=== PATIENT | male | born 1950 | race American Indian/Alaskan Native ===

== ENCOUNTER 2020-01-08 06:25 | Day surgery (SDC) | payer MEDICARE ==
--- NOTE | 2020-01-07 09:28 | Short Stay Summary ---
Short Stay Documentation Date of service: 01/08/20 - History H&P: obtained from office - Allergies and Medications Current Medications: Allergies No Known Allergies Allergy (Verified 01/01/20 12:44) Home Medications Medication Instructions Recorded Confirmed Last Taken Type Bicalutamide [Casodex] 50 mg PO DAILY 01/01/20 01/01/20 Unknown History Calcium Acetate 667 mg PO TID 01/01/20 01/01/20 Unknown History amLODIPine [Norvasc] 5 mg PO DAILY 01/01/20 01/01/20 Unknown History - Physical exam General appearance: no acute distress HEENT: Atraumatic Lungs: Normal air movement Male Genitourinary: left inguinal hernia Neurological: Normal speech - Brief post op/procedure progress note Date of procedure: 01/08/20 (dictation:[id number]) Pre-op diagnosis: LIH Post-op diagnosis: same Procedure: robotic assisted LIH repair IVF 500cc EBL min Anesthesia: GETA Findings: large direct LIH Surgeon: TWIN BELTRE Sweat Band Sewer: KAN ERICKSON Estimated blood loss: minimal Pathology: none Condition: stable - Hospital course Hospital course: uneventful - Disposition Condition at discharge: Stable Disposition: DC-01 TO HOME OR SELFCARE Short Stay Discharge Plan Activity: advance as tolerated Diet: regular Wound: open to air, keep clean and dry Special Instructions: no heavy lifting Additional Instructions: Post Operative Instructions Activity: no heavy lifting for next 1 week. May shower tomorrow. Pat dry the wound or wounds. Keep incision sites clean and dry After surgery, start with a light diet. Consider starting with liquids. If you do well, you can advance to a regular diet as you feel comfortable. Apply an ice pack to the wound or wounds for 10-20 minutes at a time. Do this at least 4-5 times a day. You can do it more if he would like. Pain Medication Schedule for the first 2 days after surgery: Gabapentin 300mg twice a day Tylenol 500mg four times a day (every 6 hours) Celebrex 200mg twice a day After the first 2 days, then take alternating doses of ibuprofen and Tylenol as needed for pain. Take 600 mg of ibuprofen every 6 hours as needed. Take 500 mg of Tylenol every 6 hours as needed. You should alternate these 2 medicines. Make sure you take the ibuprofen with food. It is very important that you use the prescription narcotic pain medicine (hydrocodone) only for very severe pain. Do not take the narcotic medicine before you try using all the medications listed above. We will call you in a couple of days to see how youre doing. If you have any questions or concerns, always feel free to call the clinic ([phone]) at any time. Follow up with: ANGELLA BOLAÑOS MD [Primary Care Provider] - 7 Days TWIN BELTRE MD [Staff Physician] - 7 Days Forms: Outpatient Surgery DC Inst. Prescriptions: Celecoxib [celeBREX] 200 mg PO BID #4 capsule Gabapentin 30 mg PO BID #4 capsule HYDROcodone/APAP 5-325 [[place] 5/325] 1 each PO Q6HR PRN #10 tablet PRN Reason: Pain , Severe (7-10)
[~2020-01-08 06:25] MED LIST: ACETAMINOPHEN 500 MG TAB PO ONE; CELECOXIB 200 MG CAP PO NR; GABAPENTIN 300 MG CAP PO SCH
[2020-01-08] MEDS ORDERED: SODIUM CHLORIDE 0.9% 1000 ML 1,000 ML IV SCH (07:10)
[2020-01-08] MEDS ORDERED: LACTATED RINGERS 1,000 ML ONE (07:10)
[2020-01-08 07:15] LABS: Hematocrit 25.5 % (35.5-45.6); Mean Corpuscular HGB Conc 32 % (32-34); Mean Corpuscular Volume 78 fl (84-94); Platelet Count 223 K/mm3 (140-440); Red Blood Count 3.27 M/mm3 (3.65-5.03); Red Cell Distribution Width 14.8 % (13.2-15.2)
--- NOTE | 2020-01-08 07:16 | Anesthesia Day of Surgery ---
Anesthesia Day of Surgery - Day of Surgery Patient Examined: Yes Patient H&P Reviewed: Yes Patient is NPO: Yes
--- NOTE | 2020-01-08 07:18 | Anesthesia Consultation ---
Anesthesia Consult and Med Hx Date of service: 01/08/20 - Airway Anesthetic Teeth Evaluation: Chipped ROM Head & Neck: Adequate Mental/Hyoid Distance: Adequate Mallampati Class: Class II Intubation Access Assessment: Good - Pre-Operative Health Status ASA Pre-Surgery Classification: ASA3 Proposed Anesthetic Plan: General - Pulmonary Hx Smoking: No (+2FS) Hx Sleep Apnea: No (MARCIO PRE SCREEN HIGH RISK) - Cardiovascular System Hx Hypertension: Yes (X 15 YRS) - Endocrine Hx Renal Disease: Yes (Last HD yesterday) Hx End Stage Renal Disease: Yes (DIALYSIS X 6 MONTHS) - Other Systems Hx Cancer: Yes - Additional Comments Anesthesia Medical History Comments: COVID NEGATIVE
[2020-01-08 07:31] LABS: Calcium 9.5 mg/dL (8.4-10.2)
[2020-01-08] MEDS ORDERED: BUPIVACAINE-EPINEPHRINE/PF 0.5%-1:200,000 (30 ML) VIAL INFILTRATI ONE ×2 (07:42→09:04)
[2020-01-08] MEDS ORDERED: LIDOCAINE (1%) 10 MG/1 ML VIAL 20 ML MDV ONE (07:42)
[2020-01-08] MEDS ORDERED: ePHEDrine SULFATE 50 MG/1 ML INJ ONE (07:45)
[2020-01-08] MEDS ORDERED: SUCCINYLCHOLINE CHLORIDE 200 MG/10 ML INJ MDV ONE (07:49)
[2020-01-08] MEDS ORDERED: fentaNYL 100 MCG/2 ML INJ ONE (07:49)
[2020-01-08] MEDS ORDERED: NEOSTIGMINE 10MG/10 ML INJ MDV ONE (07:49)
[2020-01-08] MEDS ORDERED: LIDOCAINE MPF (2%) 20 MG/1 ML VIAL 5 ML ONE (07:49)
[2020-01-08] MEDS ORDERED: GLYCOPYRROLATE 0.4 MG/2 ML INJ ONE (07:49)
[2020-01-08] MEDS ORDERED: dexAMETHasone 20 MG/5 ML VIAL ONE (07:49)
[2020-01-08] MEDS ORDERED: ROCURONIUM 50 MG/5 ML INJ IV ONE (07:49)
[2020-01-08] MEDS ORDERED: PHENYLEPHRINE/NS 1,000 MCG/10 ML SYRINGE (OR USE) IV ONE (07:49)
[2020-01-08] MEDS ORDERED: ONDANSETRON 4 MG/2 ML INJ ONE (07:49)
[2020-01-08] MEDS ORDERED: propofoL 200 MG/20 ML VIAL IV ONE (07:50)
[2020-01-08] MEDS ORDERED: ceFAZolin/Water 2 GM/20 ML 2 GM/20 ML SYRINGE IV SCH (08:00)
[2020-01-08] MEDS ORDERED: LIDOCAINE (1%) 10 MG/1 ML VIAL 20 ML MDV INFILTRATI ONE (09:04)
[2020-01-08] MEDS ORDERED: WATER FOR IRRIG STERILE 1,500 ML BOTTLE IR ONE (09:06)
[2020-01-08] MEDS ORDERED: HYDROcodone/ACETAMINOPHEN 5-325 MG TAB PO PRN (09:41)
[2020-01-08] MEDS ORDERED: CISATRACURIUM 10 MG/5 ML INJ IV ONE (10:00)
[2020-01-08] MEDS ORDERED: HYDROmorphone 1 MG/1 ML INJ ONE (10:06)
[2020-01-08] MEDS ORDERED: ONDANSETRON 4 MG/2 ML INJ IV PRN (10:07)
[2020-01-08] MEDS ORDERED: HYDROmorphone 1 MG/1 ML INJ IV PRN (10:07)
[2020-01-08 10:46] VITALS: BP 114/68
--- NOTE | 2020-01-08 14:58 | Operative Report ---
PREOPERATIVE DIAGNOSIS: Left inguinal hernia. POSTOPERATIVE DIAGNOSIS: Large direct left inguinal hernia. No evidence of hernia on the right. PROCEDURE: Robotic-assisted laparoscopic left inguinal hernia repair. ATTENDING PHYSICIAN: Bailey Oswald MD SERVER SYSTEMS ADMINISTRATOR: Dr. Cramer. ANESTHESIA: General. ESTIMATED BLOOD LOSS: Minimal. FLUIDS: 500 mL. FINDINGS: Large direct left inguinal hernia with lipoma herniating into the sac. No evidence of hernia on the right. IMPLANTS: Bard left 3DMax large mesh. DRAINS: None. COMPLICATIONS: None. DISPOSITION: Stable, transport to Recovery. INDICATIONS: This is a 69-year-old male who presented to the office for evaluation of PD catheter placement. On exam, the patient was found to have a large left inguinal hernia and a possible one on the right. The patient is assessed to be need for hernia repair. Procedure, risks, benefits were explained to the patient. Risks include but were not limited to infection, bleeding, pain, injury to surrounding structures, possible recurrence, possible need for further procedures in the future. The patient understood and consented. OPERATIVE NOTE: The patient was brought to the operating room and placed on the table in supine position. After adequate general anesthesia was established, the patient was prepped and draped in the usual sterile fashion. SCDs were in place. Antibiotics had been given. Time-out was called. I began by placing a Veress needle in the left upper quadrant. I was able to insufflate on the first attempt. This was replaced with a 5 mm port that was inserted using the Optiview technique. I entered the peritoneal cavity safely. There was no injury to the underlying structures. Under direct vision, a 12 mm port was placed in the supraumbilical position and then laterally two 8 mm ports were placed. We could easily see a very large left inguinal hernia. On the right, we did not appreciate any hernia. The bed was flexed. The patient was placed in Trendelenburg position. Robot was docked. I then proceeded to the console. I began by creating a peritoneal flap approximately 6 cm above the hernia. I dissected down to the pubic symphysis and tubercle. We extended this laterally. We had a nice wide dissection, I was clearly able to dissect the hernia sac out intact. We removed lipoma as well. We then placed a Bard 3DMax mesh in that position. It was large. Prior to that, I cleaned the area with a Ray-Delia to make sure there was no active bleeding. Everything looked very good. We clearly saw the cord structures. There were no other issues or concerns. We had a nice dissection of the peritoneum pretty far back. Mesh was laid in place. It laid very nicely. It was secured to the pubic tubercle with a 2-0 Vicryl stitch. Another 2 stitches were placed on the anterior abdominal wall, taking care to avoid the path of the epigastric vessels. We had also placed an Angiocath under direct vision to be used at the end to decompress the area. Once the mesh was secured, I then closed the peritoneum with a running 3-0 V-Loc suture. Everything looked very good. We converted back to laparoscopic approach. I removed the 2 needles as well as the Ray-Delia. We closed the 12 mm port with the Nacho-Gita fascial closure device using a 2-0 PDS suture. We then decompressed the abdomen. I held pressure down in the left inguinal region to get the air out, as we were removing air, it did decompress very nicely and stayed down. We removed all the ports. Additional local was injected, 4-0 Monocryl suture was used to close the skin with subcuticular stitches. Skin was cleaned and dried. Dermabond was placed. The patient tolerated the procedure well. There were no complications. All counts were correct at the end of the case. I spoke with the at the end of the case by phone. She was very appreciative. JOB# [id number] ANDERSON/YOHANNES
--- NOTE | 2020-01-08 15:57 | Post Anesthesia Evaluation ---
- Post Anesthesia Evaluation Patient Participated: Yes Airway Patent: Yes Stable Respiratory Function: Yes Nausea/Vomiting: No Temp > 96.8F: Yes Pain Manageable: Yes Adequeate Hydration: Yes Anesthesia Complications: No Block Receding Appropriately: Not Applicable Patient on Ventilator: No
== END 2020-01-08 11:25 | disposition home or self-care (01) ==
LOC: OR 06:25
PROVIDERS: ATTEND Surgery
DX: K40.90 Unilateral inguinal hernia, without obstruction or gangrene, not specified as recurrent (principal); Z11.59 Encounter for screening for other viral diseases; G43.909 Migraine, unspecified, not intractable, without status migrainosus; E78.00 Pure hypercholesterolemia, unspecified; I12.0 Hypertensive chronic kidney disease with stage 5 chronic kidney disease or end stage renal disease; N18.6 End stage renal disease; Z99.2 Dependence on renal dialysis; Z98.890 Other specified postprocedural states; Z79.899 Other long term (current) drug therapy; Z85.46 Personal history of malignant neoplasm of prostate
CPT/HCPCS: 36415; 49650; 80048; 85027; C1781; J0330; J1100; J1170; J2370; J2405; J2704; J2710; J3010; J7030; J7120; U0003

== ENCOUNTER 2020-04-22 10:33 | Day surgery (SDC) | payer MEDICARE ==
[2020-04-22] MEDS ORDERED: ceFAZolin/STERILE WATER 2 GM/20 ML SYRINGE IV NR (11:00)
[2020-04-22] MEDS ORDERED: SODIUM CHLORIDE 0.9% 1000 ML 1,000 ML ONE (11:14)
[2020-04-22 11:28] LABS: Calcium 9.8 mg/dL (8.4-10.2)
[2020-04-22] MEDS ORDERED: ONDANSETRON 4 MG/2 ML INJ IV PRN (11:30)
[2020-04-22] MEDS ORDERED: HYDROmorphone 1 MG/1 ML INJ IV PRN ×2 (11:30)
[2020-04-22] MEDS ORDERED: SODIUM CHLORIDE 0.9% 1000 ML 1,000 ML IV SCH (11:30)
--- NOTE | 2020-04-22 11:31 | Anesthesia Day of Surgery ---
Anesthesia Day of Surgery - Day of Surgery Patient Examined: Yes Patient H&P Reviewed: Yes Patient is NPO: Yes
--- NOTE | 2020-04-22 11:32 | Anesthesia Consultation ---
Anesthesia Consult and Med Hx Date of service: 04/22/20 - Airway Anesthetic Teeth Evaluation: Poor, Chipped ROM Head & Neck: Adequate Mental/Hyoid Distance: Adequate Mallampati Class: Class II Intubation Access Assessment: Good - Pre-Operative Health Status ASA Pre-Surgery Classification: ASA3 Proposed Anesthetic Plan: General - Pulmonary Hx Smoking: No Hx Respiratory Symptoms: No (COVID-negative) SOB: Yes (SOB WITH ACTIVITY) Hx Pneumonia: Yes (02/2020,[place] WITH ABX- RESOLVED) Hx Sleep Apnea: No (MARCIO PRE SCREEN HIGH RISK) - Cardiovascular System Hx Hypertension: Yes (X 15 YRS- OFF MEDS NOW DUE TO RECENT LOW BP) - Central Nervous System Hx Neuromuscular Disorder: Yes (Peripheral neuropathy) Hx Psychiatric Problems: No - Endocrine Hx Renal Disease: Yes Hx End Stage Renal Disease: Yes (Last HD yesterday) - Hematic Hx Anemia: Yes - Other Systems Hx Cancer: Yes (h/o reccurent Prostate CA (2013, 2018))
[2020-04-22] MEDS ORDERED: LIDOCAINE (1%) 10 MG/1 ML VIAL 20 ML MDV ONE ×2 (12:46→13:47)
[2020-04-22] MEDS ORDERED: BUPIVACAINE-EPINEPHRINE/PF 0.5%-1:200,000 (30 ML) VIAL INFILTRATI ONE ×2 (13:00→14:35)
[2020-04-22] MEDS ORDERED: LIDOCAINE MPF (2%) 20 MG/1 ML VIAL 5 ML ONE (13:41)
[2020-04-22] MEDS ORDERED: ROCURONIUM 50 MG/5 ML INJ IV ONE (13:41)
[2020-04-22] MEDS ORDERED: propofoL 200 MG/20 ML VIAL IV ONE (13:41)
[2020-04-22] MEDS ORDERED: HYDROmorphone 1 MG/1 ML INJ ONE ×2 (13:42→14:05)
[2020-04-22] MEDS ORDERED: BUPIVACAINE/PF (0.25%) 2.5 MG/ML 30 ML VIAL INFILTRATI ONE (13:46)
[2020-04-22] MEDS ORDERED: HEPARIN 10,000 UNITS/10 ML VIAL ONE (13:47)
[2020-04-22] MEDS ORDERED: NEOSTIGMINE 10MG/10 ML INJ MDV ONE (14:05)
[2020-04-22] MEDS ORDERED: dexAMETHasone 20 MG/5 ML VIAL ONE (14:05)
[2020-04-22] MEDS ORDERED: ONDANSETRON 4 MG/2 ML INJ ONE (14:05)
[2020-04-22] MEDS ORDERED: GLYCOPYRROLATE 0.4 MG/2 ML INJ ONE (14:05)
[2020-04-22] MEDS ORDERED: PHENYLEPHRINE/NS 1,000 MCG/10 ML SYRINGE (OR USE) IV ONE (14:05)
[2020-04-22] MEDS ORDERED: SODIUM CHLORIDE 0.9% IRR 1,500 ML BOTTLE IR ONE (14:35)
--- NOTE | 2020-04-22 15:15 | Short Stay Summary ---
Short Stay Documentation Date of service: 04/22/20 - History Principal diagnosis: malfunctioning PD catheter H&P: obtained from office - Allergies and Medications Current Medications: Allergies No Known Allergies Allergy (Verified 01/21/20 09:26) Home Medications Medication Instructions Recorded Confirmed Last Taken Type Bicalutamide [Casodex] 50 mg PO DAILY 01/01/20 04/22/20 04/21/20 09:00 History B Complex 11/Folic/C/Biot/Zinc 1 tab PO DAILY 04/16/20 04/22/20 04/21/20 09:00 History [Dialyvite with Zinc Tablet] Calcium Citrate/Vitamin D3 1 tab PO DAILY 04/16/20 04/22/20 04/21/20 09:00 History [Citracal + D Maximum Caplet] [place]-3/Dha/Epa/Fish Oil [[place] 3 1 cap PO DAILY 04/16/20 04/22/20 04/21/20 09:00 History 500 Softgel] Active Medications Cefazolin Sodium (Ancef/Sterile Water 2 Gm/20 Ml) 2 gm IV PREOP NR Stop: 04/22/20 23:59 Hydromorphone HCl (Dilaudid) 0.25 mg IV Q10MIN PRN PRN Reason: Pain, Moderate (4-6) Stop: 04/22/20 23:59 Hydromorphone HCl (Dilaudid) 0.5 mg IV Q10MIN PRN PRN Reason: Pain , Severe (7-10) Stop: 04/22/20 23:59 Sodium Chloride (Nacl 0.9% 1000 Ml) 1,000 mls @ 42 mls/hr IV DIRECT LORENZO Last Admin: 04/22/20 11:39 Dose: 42 mls/hr Documented by: Ondansetron HCl (Zofran) 4 mg IV ONCE PRN PRN Reason: Nausea And Vomiting - Brief post op/procedure progress note Date of procedure: 04/22/20 Pre-op diagnosis: malfunctioning PD catheter Post-op diagnosis: same Procedure: diagnostic laparoscopy, removal of PD catheter Anesthesia: GETA, local Findings: Very dense adhesions from small bowel to pelvis, anterior abdominal wall in the region of the peritoneal dialysis catheter. Catheter completely obscures. First 2 cm of catheter entering into abdominal cavity completely encased in dense scar tissue. Surgeon: KAN ERICKSON Estimated blood loss: minimal Pathology: list (PD catheter (2 pieces)) Specimen disposition: to lab Condition: stable - Hospital course Hospital course: Pt observed in PACU and discharged to home in stable condition when criteria met - Disposition Condition at discharge: Good Disposition: DC-01 TO HOME OR SELFCARE Short Stay Discharge Plan Activity: other (no heavy lifting for 2 weeks) Diet: renal Wound: other (remove gauze dressing in 2 days. May shower after that. Cleanse incisions with soap and water, pat dry, do not scrub.) Follow up with: BRIAN JESUS MD [Primary Care Provider] - 7 Days KAN ERICKSON DO [Staff Physician] - 14 Days NAY FERGUSON MD [Staff Physician] - 7 Days Prescriptions: HYDROcodone/APAP 5-325 [[place] 5/325] 1 each PO Q4HR PRN #15 tablet PRN Reason: Pain , Severe (7-10)
[2020-04-22 16:36] VITALS: BP 116/67
--- NOTE | 2020-04-22 17:05 | Operative Report ---
Operative Report Operative Report: Date of procedure: 04/22/20 Pre-op diagnosis: malfunctioning PD catheter Post-op diagnosis: same Procedure: diagnostic laparoscopy, removal of PD catheter Anesthesia: GETA, local Findings: Very dense adhesions from small bowel to pelvis, anterior abdominal wall in the region of the peritoneal dialysis catheter. Catheter completely obscures. First 2 cm of catheter entering into abdominal cavity completely encased in dense scar tissue. Surgeon: KAN ERICKSON Estimated blood loss: minimal Pathology: list (PD catheter (2 pieces)) Specimen disposition: to lab Condition: stable - Hospital course Hospital course: Pt observed in PACU and discharged to home in stable condition when criteria met HPI and indication: Patient is a 70-year-old male with a past medical history of end-stage renal disease currently on hemodialysis via PermCath. Patient had a laparoscopic peritoneal dialysis catheter placement back in January [address] Oswald. Although the catheter worked very well initially, the patient started having issues with filling of the abdomen during his PD training sessions. In March 2020 underwent a diagnostic laparoscopy by Dr. Oswald during which she was found to have very dense scar tissue around the catheter. A lysis of adhesions was performed and the catheter was freed and placed back into the pelvis. The peritoneal dialysis catheter then functioned well for 2 weeks and the patient started to have the same issues with discomfort upon filling the abdomen and only able to fill approximately 100 cc. Despite conservative management with antifibrin agents, these issues did not resolve. I had a long discussion with the patient regarding further recommendations. We discussed a repeat diagnostic laparoscopy to examine whether he had reformed scar tissue and based on that I would make the intraoperative decision to either remove the catheter or leave it in place. He understands and all risk, benefits, alternatives to surgery were discussed. All questions answered and consent obtained. Procedure in detail: Patient identified the preoperative area, take back to operating room placed operative table in supine position. After anesthesia was induced the abdomen along with the PD catheter were prepped and draped in usual sterile fashion a timeout was performed. Local anesthetic was infiltrated to skin incision sites. A 5 mm left upper quadrant incision was made through the old scar at Restrepo's point through which a Veress needle was inserted. The Veress needle position was confirmed using saline drop test and the abdomen insufflated to 15 mmHg. Once the abdomen is insufflated the Veress needle was removed and a 5 mm Optiview trocar placed through this incision. The abdomen is inspected and there was no underlying injury to any abdominal structures. There appeared to be dense adhesions from the small bowel and omentum to the anterior abdominal wall and in the pelvis completely obscuring the peritoneal dialysis catheter. An additional incision was made in the left lateral abdomen at a previous laparoscopic scar through which a 5 mm trocar was placed under direct visualization. I further examined the adhesions and attempted to break these up with blunt dissection which was unsuccessful. The small bowel was very densely adhered to the anterior abdominal wall in the pelvis without an obvious safe plane. A 2 cm portion of the peritoneal dialysis catheter was identified as it entered the abdomen near the umbilicus, however even this was completely encased in dense scar tissue. At this point, it was decided that the patient was having a foreign body reaction to the peritoneal dialysis catheter for the second time in a period of less than a month and that the peritoneal dialysis catheter could not be salvaged. It was therefore decided to remove the catheter. This was discussed in detail with the patient prior to surgery. The abdomen was desufflated. Local anesthetic was infiltrated into the skin just to the right of the umbilicus at the old incision site where the preperitoneal cuff was buried. An incision was made in the skin using 11 blade and dissection carried down through skin and subcutaneous tissue using Bovie electrocautery. The catheter was palpable and dissected free from the capsule using electrocautery. The catheter was grasped with a hemostat and brought out of the incision. The tunnel was dissected using a hemostat until the subcutaneous cuff was identified. This was dissected free from the surrounding tissue using Bovie electrocautery circumferentially. I then turned my attention to freeing the preperitoneal cuff. Dissection was carried down through the capsule along the length of the catheter towards the fascia. The preperitoneal cuff was identified deep to the muscle and tented upwards. This was circumferentially dissected free from the surrounding capsule using electrocautery. Great care was taken to avoid injury to the surrounding structures. Once this was freed the catheter was easily removed from the intra-abdominal cavity. The catheter was cut and both pieces passed off the table as a specimen for identification only. Of note, the intra- abdominal portion of the catheter did have some fat globules intermittently throughout the tubing but was able to be flushed easily with saline. The wound was then irrigated and checked for hemostasis. There was no bleeding seen. The fascia was approximated over the muscle using an interrupted 0 Vicryl stitch. I then went back to assess the abdomen laparoscopically. The abdomen was insufflated and there was no underlying injury to any of the abdominal structures. There is no bleeding seen. The abdomen was then desufflated and the trocars removed. Local anesthetic was infiltrated to all skin incision si [place]. The right sided incision was closed in a layered fashion. The deep dermal layer was closed with interrupted 3-0 Vicryl stitches. All skin incisions were approximated 4 Monocryl subcuticular stitch and skin glue. The catheter exit site in the right lateral abdomen was covered with a 4 x 4 gauze and a Tegaderm. The end of the case all sponge, instrument, sharp counts were correct x2. The patient was awoken from anesthesia, extubated, taken to PACU in stable condition. Patient's was called and updated. I left a message for Dr. Harrington the patient's reinforcing steel machine operator updating him of the findings.
== END 2020-04-22 16:53 | disposition home or self-care (01) ==
LOC: OR 10:33
PROVIDERS: ATTEND Surgery
DX: T85.611A Breakdown (mechanical) of intraperitoneal dialysis catheter, initial encounter (principal); I12.0 Hypertensive chronic kidney disease with stage 5 chronic kidney disease or end stage renal disease; N18.6 End stage renal disease; G62.9 Polyneuropathy, unspecified; G43.909 Migraine, unspecified, not intractable, without status migrainosus; E78.00 Pure hypercholesterolemia, unspecified; Z98.890 Other specified postprocedural states; Z85.46 Personal history of malignant neoplasm of prostate; Z79.899 Other long term (current) drug therapy; Z87.01 Personal history of pneumonia (recurrent); Y82.8 Other medical devices associated with adverse incidents; Y92.89 Other specified places as the place of occurrence of the external cause
CPT/HCPCS: 36415; 49320; 49422; 80048; 88300; J0690; J1100; J1170; J2370; J2405; J2704; J2710; J7030; U0003; J1644

== ENCOUNTER 2020-08-22 10:23 | Day surgery (SDC) | payer MEDICARE ==
[~2020-08-22 10:23] MED LIST changes: -ACETAMINOPHEN 500 MG TAB PO ONE; -CELECOXIB 200 MG CAP PO NR; -GABAPENTIN 300 MG CAP PO SCH; +MIDAZOLAM 2 MG/2 ML INJ IV NR; +SODIUM CHLORIDE 0.9% 1000 ML 1,000 ML IV SCH; +ceFAZolin/Water 2 GM/20 ML 2 GM/20 ML SYRINGE IV NR; +fentaNYL 100 MCG/2 ML INJ IV PRN
[2020-08-22 11:52] LABS: Calcium 9.5 mg/dL (8.4-10.2)
[2020-08-22] MEDS ORDERED: HYDROmorphone 1 MG/1 ML INJ ONE (11:55)
[2020-08-22] MEDS ORDERED: LIDOCAINE MPF (2%) 20 MG/1 ML VIAL 5 ML ONE (11:55)
[2020-08-22] MEDS ORDERED: propofoL 200 MG/20 ML VIAL IV ONE ×2 (11:55→13:25)
[2020-08-22 11:56] LABS: Hemoglobin 12.3 gm/dl (11.8-15.2); Red Blood Count 5.22 M/mm3 (3.65-5.03)
[2020-08-22 11:57] LABS: Hematocrit 41.7 % (35.5-45.6); Mean Corpuscular HGB Conc 30 % (32-34); Mean Corpuscular Volume 80 fl (84-94); Platelet Count 185 K/mm3 (140-440); Red Cell Distribution Width 18.3 % (13.2-15.2)
[2020-08-22] MEDS ORDERED: MIDAZOLAM 2 MG/2 ML INJ ONE (12:12)
[2020-08-22] MEDS ORDERED: PROTAMINE SULFATE 50 MG/5 ML INJ ONE (12:15)
[2020-08-22] MEDS ORDERED: BUPIVACAINE/PF (0.5%) 5 MG/1 ML 10 ML VIAL INFILTRATI ONE ×3 (12:15→13:42)
[2020-08-22] MEDS ORDERED: LIDOCAINE (1%) 10 MG/1 ML VIAL 20 ML MDV ONE (12:15)
[2020-08-22] MEDS ORDERED: SODIUM CHLORIDE 0.45% 500 ML IV ONE (12:16)
[2020-08-22] MEDS ORDERED: HEPARIN 10,000 UNITS/10 ML VIAL ONE (12:16)
[2020-08-22] MEDS ORDERED: SODIUM CHLORIDE P/F VIAL 10 ML 10 ML ONE (12:16)
[2020-08-22] MEDS ORDERED: PAPAVERINE 60 MG/2 ML INJ SDV ONE (12:16)
[2020-08-22] MEDS ORDERED: SODIUM BICARBONATE 2 MEQ/2 ML SYRINGE ONE (12:17)
[2020-08-22] MEDS ORDERED: NITROGLYCERIN SYRINGE 0 ML ONE (12:17)
[2020-08-22] MEDS ORDERED: SODIUM CHLORIDE 0.9% 250ML 250 ML ONE (12:17)
[2020-08-22] MEDS ORDERED: rifAMPin 600 MG VIAL ONE (12:17)
--- NOTE | 2020-08-22 12:28 | Anesthesia Day of Surgery ---
Anesthesia Day of Surgery - Day of Surgery Patient Examined: Yes Patient H&P Reviewed: Yes Patient is NPO: Yes
--- NOTE | 2020-08-22 12:28 | Anesthesia Consultation ---
Anesthesia Consult and Med Hx Date of service: 08/22/20 - Airway Anesthetic Teeth Evaluation: Poor ROM Head & Neck: Adequate Mental/Hyoid Distance: Adequate Mallampati Class: Class III Intubation Access Assessment: Possibly Difficult - Pulmonary Exam CTA: Yes - Cardiac Exam Cardiac Exam: RRR - Pre-Operative Health Status ASA Pre-Surgery Classification: ASA3 Proposed Anesthetic Plan: MAC Nerve Block: supraclavicular - Pulmonary Hx Smoking: No Hx Respiratory Symptoms: Yes (chronic cough) SOB: Yes (BELL) Hx Sleep Apnea: No (MARCIO PRE SCREEN HIGH RISK) - Cardiovascular System Hx Hypertension: Yes Hx Heart Attack/AMI: No Hx Percutaneous Transluminal Coronary Angioplasty (PTCA): No Hx Cardia Arrhythmia: No - Central Nervous System Hx Neuromuscular Disorder: No (Peripheral neuropathy) CVA: No Hx Back Pain: Yes - Endocrine Hx End Stage Renal Disease: Yes (last HD 08/21/20) Hx Liver Disease: No Hx Insulin Dependent Diabetes: No Hx Non-Insulin Dependent Diabetes: No Hx Thyroid Disease: No - Hematic Hx Anemia: Yes Hx Sickle Cell Disease: No - Other Systems Hx Alcohol Use: No Hx Substance Use: No Hx Cancer: Yes (h/o reccurent Prostate CA)
[2020-08-22] MEDS ORDERED: PHENYLEPHRINE/NS 1,000 MCG/10 ML SYRINGE (OR USE) IV ONE (13:10)
[2020-08-22] MEDS ORDERED: HEPARIN 10,000 UNITS/10 ML VIAL IV ONE (13:41)
[2020-08-22] MEDS ORDERED: SODIUM CHLORIDE 0.9% IRR 1,500 ML BOTTLE IR ONE (13:42)
[2020-08-22] MEDS ORDERED: SODIUM CHLORIDE 0.9% 500 ML IVPB IV ONE (13:42)
[2020-08-22] MEDS ORDERED: SODIUM CHLORIDE 0.9% P/F 10 ML VIAL IV ONE (13:43)
[2020-08-22] MEDS ORDERED: SODIUM CHLORIDE 0.9% 250 ML IVPB IV ONE (13:43)
[2020-08-22] MEDS ORDERED: rifAMPin 600 MG VIAL IV ONE (13:43)
--- NOTE | 2020-08-22 14:46 | Short Stay Summary ---
Short Stay Documentation Date of service: 08/22/20 Narrative H&P: See H&P - History H&P: obtained from office - Allergies and Medications Current Medications: Allergies No Known Allergies Allergy (Verified 01/21/20 09:26) Home Medications Medication Instructions Recorded Confirmed Last Taken Type Bicalutamide [Casodex] 150 mg PO DAILY 01/01/20 04/22/20 04/21/20 09:00 History amLODIPine 5 mg PO DAILY 08/15/20 08/22/20 08/21/20 08:00 History rOPINIRole [Requip] 0.25 mg PO DAILY 08/15/20 08/22/20 08/21/20 08:00 History Active Medications Fentanyl (Fentanyl 100 Mcg/2 Ml Inj) 100 mcg IV ONCE PRN PRN Reason: sedation for nerve block Stop: 08/22/20 23:59 Last Admin: 08/22/20 12:13 Dose: 100 mcg Documented by: Cefazolin Sodium (Ancef/Sterile Water 2 Gm/20 Ml) 2 gm in 20 mls @ 80 mls/hr IV PREOP NR; Protocol Stop: 08/22/20 23:00 Sodium Chloride (Nacl 0.9% 1000 Ml) 1,000 mls @ 42 mls/hr IV DIRECT LORENZO Stop: 08/22/20 23:59 Last Admin: 08/22/20 11:50 Dose: 42 mls/hr Documented by: Midazolam HCl (Midazolam 2 Mg/2 Ml Inj) 2 mg IV PREOP NR Stop: 08/22/20 23:59 Last Admin: 08/22/20 12:12 Dose: 2 mg Documented by: - Brief post op/procedure progress note Date of procedure: 08/22/20 Pre-op diagnosis: End-Stage Renal Disease Post-op diagnosis: same Procedure: Creation of Right Brachial Artery to Right Axillary Vein Arteriovenous Graft with 7 mm Bovine Artegraft Anesthesia: MAC, regional Surgeon: CLIF MENDEZ Estimated blood loss: minimal Pathology: none Condition: stable - Disposition Condition at discharge: Good Disposition: DC-01 TO HOME OR SELFCARE Short Stay Discharge Plan Activity: other (No Heavy Lifting with Right Arm) Wound: open to air, keep clean and dry, other (Okay to wash the wounds with soap and water but do not soak in water for 2 weeks.) Follow up with: CLIF MENDEZ MD [Staff Physician] - 14 Days Prescriptions: HYDROcodone/APAP 5-325 [[place] 5/325] 1 each PO Q4HR PRN #30 tablet PRN Reason: Pain
--- NOTE | 2020-08-22 14:52 | Operative Report ---
Operative Report Operative Report: Date of procedure: 08/22/2020 Pre-operative diagnosis: End-Stage Renal Disease Post-operative diagnosis: Same Procedure(s): 1. Creation of Right brachial Artery to Axillary Vein AV Graft with 7 mm Bovine Graft Artergraft Surgeon: Stew He MD Leak Hunter: None Anesthesia: Regional/MAC EBL: Minimal Counts: Correct Complications: None Condition: Stable Findings: Successful Creation of Right arm AV Graft with Palpable Thrill and Palpable Radial Pulse at the Completion of the Case. Specimen: None Indication: The patient is a 70-year-old male with a history of end-stage renal disease who is currently on hemodialysis through a right internal jugular permacath. He is in need of long-term dialysis access and his veins are too small for creation of an arteriovenous fistula so he requires creation of an AV Graft. He was given the risk, benefits, and alternative procedures and consented to the procedures. Description of Procedure: Prior to being transported to the operating room the patient had a regional block of the right arm performed. After the block was performed the patient was transported to the operating room and adequately sedated. The patient's left arm was then prepped and draped in normal sterile fashion. A longitudinal incision was made on the medial aspect of the arm just proximal to the antecubital crease and carried down to the brachial artery using sharp dissection. The brachial artery was dissected out circumferentially both proximally and distally and controlled with vessel loops. A second incision was created in longitudinal fashion on the medial aspect of the arm just distal to the axillary crease and carried down to the axillary vein using sharp dissection. Axillary vein was dissected out circumferentially and controlled with a vessel loop. I then used a Greta-Wick tunneler to tunnel from the brachial artery incision to the axillary vein incision and then put an 7 mm bovine through the tunnel. I infused with heparinized saline to ensure that it was not twisted or kinked. I put the brachial artery vessel loops on tension controlling the flow and then created an arteriotomy using an 11 blade and Cameron scissors. I beveled the graft and created an end-to-side anastomosis using 6-0 Prolene running fashion. I clamped the graft just proximal to the anastomosis and then released the vessel loops restoring flow in the brachial artery. I placed quick clot in incision to achieve hemostasis. I cut the proximal end of the graft to the appropriate length and beveled the graft in preparation for a venous anastomosis. I controlled the axillary vein a Satinsky clamp and created a venotomy using an 11 blade and Cameron scissors. I created an end to side anastomosis using a 6-0 Prolene in running fashion. Prior to completing the anastomosis I flushed the graft to ensure there was no thrombus and then completed the anastamosis. I released all clamps allowing flow into the AV graft which had an excellent thrill. I packed the wound with quick clot to achieve hemostasis. I anesthetized both wounds with 0.5% Marcaine and then c losed both wounds in 2 layers using 3-0 Vicryl in running fashion in the deep dermal layer and 4-0 Monocryl in running fashion the subcuticular layer. I dressed both wounds with Dermabond. The patient tolerated the procedure well all sponge, needle, and instrument counts were correct. The patient was taken to recovery in stable condition.
[2020-08-22] MEDS ORDERED: HEPARIN 10,000 UNIT/1 ML VIAL IV ONE (15:20)
--- NOTE | 2020-08-22 16:05 | Post Anesthesia Evaluation ---
- Post Anesthesia Evaluation Patient Participated: Yes Airway Patent: Yes Stable Respiratory Function: Yes Nausea/Vomiting: No Temp > 96.8F: Yes Pain Manageable: Yes Adequeate Hydration: Yes Anesthesia Complications: No Block Receding Appropriately: Yes (provided with sling)
[2020-08-22 16:23] VITALS: BP 132/74
== END 2020-08-22 16:15 | disposition home or self-care (01) ==
LOC: OR 10:23
PROVIDERS: ATTEND Surgery Vascular Surgery
DX: I12.0 Hypertensive chronic kidney disease with stage 5 chronic kidney disease or end stage renal disease (principal); N18.6 End stage renal disease; G62.9 Polyneuropathy, unspecified; G43.909 Migraine, unspecified, not intractable, without status migrainosus; D64.9 Anemia, unspecified; E78.00 Pure hypercholesterolemia, unspecified; M19.90 Unspecified osteoarthritis, unspecified site; Z87.01 Personal history of pneumonia (recurrent); Z85.46 Personal history of malignant neoplasm of prostate; Z79.899 Other long term (current) drug therapy
CPT/HCPCS: 36415; 36830; 80048; 85027; C1768; J0690; J1170; J1644; J2250; J2370; J2704; J3010; J3490; J7030; J7040; J7050; 64450; J2440; J2720